=== PATIENT | male | born 1970 | race Caucasian/White ===

== ENCOUNTER 2017-01-30 10:56 | Emergency (ER) | payer SELFPAY ==
[~2017-01-30] VITALS: Ht 180.3 cm; Wt 68.4 kg
[2017-01-30 10:59] VITALS: BP 177/121
[2017-01-30 11:56] LABS: PATH.CAST-FLAG NOT PRESENT; SPERM-FLAG NOT PRESENT; SRC-FLAG NOT PRESENT; XTAL-FLAG NOT PRESENT; YLC-FLAG NOT PRESENT
[2017-01-30] MEDS ORDERED: SODIUM CHLORIDE FLUSH 10ML SYR IVF ONE (12:00)
[2017-01-30 12:24] LABS: ASPARTATE AMINO TRANSFERASE 16 U/L (15-37); BLOOD UREA NITROGEN 14 mg/dL (7-18)
== END 2017-01-30 14:00 | disposition home or self-care (01) ==
LOC: ED 12:12
DX: G89.29 Other chronic pain (principal); R10.84 Generalized abdominal pain; M54.5 Low back pain; I10 Essential (primary) hypertension; F17.200 Nicotine dependence, unspecified, uncomplicated; Z90.49 Acquired absence of other specified parts of digestive tract; Z88.6 Allergy status to analgesic agent
CPT/HCPCS: 36415; 74020; 80053; 81001; 83690; 85025; 85610; 85730; 93005; 99285

== ENCOUNTER 2017-02-05 14:38 | Emergency (ER) | payer OTHER ==
[~2017-02-05] VITALS: Ht 170.2 cm; Wt 75.0 kg
[2017-02-05] MEDS ORDERED: HYDROmorphone 1 MG/ML, 1ML ONE ×2 (14:49→15:37)
[2017-02-05] MEDS ORDERED: ONDANSETRON 2MG/ML, 2ML ONE (14:50)
[2017-02-05] MEDS ORDERED: DIPH,PERTUSS(ACELL),TET VAC/PF 0.5 ML IM-VACC ONE ×2 (14:50→15:00)
[2017-02-05] MEDS ORDERED: DIPHTHERIA-TETANUS ADULT 0.5ML IM-VACC ONE (15:00)
[2017-02-05] MEDS ORDERED: ONDANSETRON 2MG/ML, 2ML IVPush ONE (15:00)
[2017-02-05] MEDS: HYDROmorphone 1 MG/ML, 1ML IVPush PRN ×2 (15:00→15:41)
[2017-02-05] MEDS ORDERED: SODIUM CHLORIDE 0.9% 1,000ML IVBOLUS ONE (15:00)
[2017-02-05] MEDS ORDERED: SODIUM CHLORIDE FLUSH 10ML SYR IVF ONE (15:00)
[2017-02-05 15:26] LABS: ASPARTATE AMINO TRANSFERASE 17 U/L (15-37); BLOOD UREA NITROGEN 14 mg/dL (7-18)
[2017-02-05] MEDS ORDERED: OMNIPAQUE 350 MG/ML, 100ML BOTTLE ONE (15:39)
[2017-02-05] MEDS ORDERED: OXYcodone/APAP 10/325MG TABLET ONE (16:01)
[2017-02-05] MEDS ORDERED: OXYcodone/APAP 10/325MG TABLET PO ONE (16:30)
[2017-02-05] MEDS ORDERED: LIDOCAINE 1%, 20ML ONE (17:19)
[2017-02-05] MEDS ORDERED: BACITRACIN ZINC OINT 500U/GM, 0.9 GM ONE (17:29)
[2017-02-05 19:13] VITALS: BP 132/87
== END 2017-02-05 19:16 | disposition home or self-care (01) ==
LOC: ED 19:00
DX: S01.511A Laceration without foreign body of lip, initial encounter (principal); S00.83XA Contusion of other part of head, initial encounter; S43.101A Unspecified dislocation of right acromioclavicular joint, initial encounter; V19.3XXA Pedal cyclist (driver) (passenger) injured in unspecified nontraffic accident, initial encounter; Y93.I9 Activity, other involving external motion; Y92.89 Other specified places as the place of occurrence of the external cause; Y99.8 Other external cause status
CPT/HCPCS: 12011; 29105; 36415; 70450; 71260; 72125; 73080; 74177; 80053; 80307; 85025; 85610; 96361; 96374; 96375; 96376; 99285; J1170; J2405; J7030; Q9967

== ENCOUNTER 2018-03-21 09:39 | Inpatient (IN) | payer MEDICARE ==
[~2018-03-21] VITALS: Ht 177.8 cm; Wt 72.0 kg
[2018-03-21] MEDS ORDERED: SODIUM CHLORIDE FLUSH 10ML SYR IVF ONE (10:00)
[2018-03-21] MEDS ORDERED: MORPHINE SULFATE 4 MG/ML, 1ML IVPush PRN (10:00)
[2018-03-21] MEDS ORDERED: SODIUM CHLORIDE 0.9% 1,000ML IVBOLUS ONE (10:00)
[2018-03-21] MEDS ORDERED: MORPHINE SULFATE 4 MG/ML, 1ML ONE (10:15)
[2018-03-21] MEDS ORDERED: PLEASE ENTER WEIGHT MC SCH (10:30)
[2018-03-21 10:33] LABS: MEAN CORPUSCULAR HEMOGLOBIN 28.8 pg (27.5-34.5); MEAN CORPUSCULAR HGB CONC 33.2 g/dL (33.2-36.2); MEAN CORPUSCULAR VOLUME 86.5 fL (81-97); MEAN PLATELET VOLUME 7.9 fL (7.4-10.4); PLATELET COUNT 265 x10^3/uL (130-400); RED BLOOD COUNT 5.26 x10^6/uL (4.38-5.82); RED CELL DISTRIBUTION WIDTH 14.4 % (9.4-14.8)
[2018-03-21 10:39] LABS: ALANINE AMINOTRANSFERASE 28 U/L (12-78); ALBUMIN 3.2 g/dL (3.4-5.0); ANION GAP 11 mmol/L (5-15); CALCIUM 8.9 mg/dL (8.5-10.1); CHLORIDE 97 mmol/L (98-107)
[2018-03-21 10:41] LABS: ALKALINE PHOSPHATASE 199 U/L (45-117); BILIRUBIN,TOTAL 0.7 mg/dL (0.2-1.0)
[2018-03-21] MEDS ORDERED: SODIUM CHLORIDE 0.9%, 500ML IVBOLUS ONE (11:00)
[2018-03-21] MEDS ORDERED: CEFTRIAXONE PMX 1GM/50ML 50 ML IV ONE (11:00)
[2018-03-21] MEDS ORDERED: AZITHROMYCIN 500 MG in SODIUM CHLORIDE 0.9% 250 ML IV ONE (11:00)
[2018-03-21] MEDS ORDERED: CEFTRIAXONE PMX 1GM/50ML 50 ML ONE (11:07)
[2018-03-21 11:08] LABS: MD YES
[2018-03-21 11:09] LABS: BAND#(MANUAL) 0.96 x10^3/uL; BANDS%(MANUAL) 5 % (0-7); LYMPH#(MANUAL) 1.54 x10^3/uL (1-3.4); LYMPHS% (MANUAL) 8 % (22-44); MONOS#(MANUAL) 0.96 x10^3/uL (0.3-2.7); MONOS% (MANUAL) 5 % (2-9); SEG#(MANUAL) 15.74 x10^3/uL (1.8-6.8); SEGS% (MANUAL) 82 % (42-75)
[2018-03-21 11:10] LABS: <RBC MORPHOLOGY> NORMAL
[2018-03-21 11:11] LABS: <PLATELET ESTIMATE> ADEQUATE; <PLT MORPHOLOGY> NORMAL PLT MORPH
[2018-03-21] MEDS ORDERED: VANCOMYCIN 1,400 MG in SODIUM CHLORIDE 0.9% 250 ML IV ONE (11:30)
[2018-03-21] MEDS ORDERED: VANCOMYCIN PER PHARMACY MC ONE (11:30)
[2018-03-21] MEDS ORDERED: ONDANSETRON ODT 4 MG PO PRN (12:00)
[2018-03-21] MEDS ORDERED: hydrALAzine 20 MG/ML, 1ML IVPush PRN (12:00)
[2018-03-21] MEDS ORDERED: LABETALOL 5MG/ML, 20ML IVPush PRN (12:00)
[2018-03-21] MEDS ORDERED: ONDANSETRON 2MG/ML, 2ML IVPush PRN (12:00)
[2018-03-21] MEDS ORDERED: CEFTRIAXONE 1,000 MG in SODIUM CHLORIDE 0.9% 50 ML IVPB SCH (13:00)
[2018-03-21 14:00] VITALS: BP 150/99
[2018-03-21 14:42] LABS: MICROSCOPIC INDICATED
[2018-03-21 14:43] LABS: CULTURE INDICATED? YES
[2018-03-21] MEDS ORDERED: ACETAMINOPHEN 325 MG TABLET PO PRN (15:00)
[2018-03-21 15:04] LABS: AMPHETAMINE SCREEN, URINE Positive (Negative); BARBITURATE SCREEN, URINE Negative (Negative); BENZODIAZEPINE SCREEN, URINE Negative (Negative); CANNABINOID SCREEN, URINE Positive (Negative); COCAINE SCREEN, URINE Negative (Negative); METHADONE SCREEN, URINE Negative (Negative); OPIATE SCREEN, URINE Positive (Negative)
[2018-03-21] MEDS: NICOTINE 14MG/24 HR PATCH.TD24 TD SCH (15:04)
[2018-03-21] MEDS: ENOXAPARIN 40 MG/0.4 ML SQ SCH (15:05)
[2018-03-21] MEDS ORDERED: ACETAMINOPHEN 500 MG TABLET ONE (15:09)
[2018-03-21] MEDS ORDERED: ALBUTEROL SULFATE 2.5 MG/3 ML ONE (16:12)
[2018-03-21] MEDS ORDERED: ALBUTEROL SULFATE 2.5 MG/3 ML NPPB PRN (16:30)
[2018-03-21] MEDS: SODIUM CHLORIDE 0.9% 1,000 ML IV SCH (17:07)
[2018-03-21] MEDS: ALBUTEROL SULFATE 2.5 MG/3 ML NPPB SCH (20:00)
[2018-03-21 20:25] VITALS: BP 105/61
[2018-03-21] MEDS ORDERED: ACETAMINOPHEN 500 MG TABLET PO PRN (21:00)
[2018-03-22 02:10] VITALS: BP 103/63
[2018-03-22] MEDS: SODIUM CHLORIDE 0.9% 1,000 ML IV SCH ×3 (03:35→22:38)
[2018-03-22 05:41] LABS: MEAN CORPUSCULAR HEMOGLOBIN 29.5 pg (27.5-34.5); MEAN CORPUSCULAR HGB CONC 33.6 g/dL (33.2-36.2); MEAN CORPUSCULAR VOLUME 87.8 fL (81-97); MEAN PLATELET VOLUME 8.2 fL (7.4-10.4); PLATELET COUNT 240 x10^3/uL (130-400); RED BLOOD COUNT 4.74 x10^6/uL (4.38-5.82); RED CELL DISTRIBUTION WIDTH 14.5 % (9.4-14.8)
[2018-03-22 05:51] LABS: ALBUMIN 2.4 g/dL (3.4-5.0); ANION GAP 9 mmol/L (5-15); CALCIUM 7.9 mg/dL (8.5-10.1); CHLORIDE 104 mmol/L (98-107)
[2018-03-22 06:01] LABS: ALANINE AMINOTRANSFERASE 22 U/L (12-78); ALKALINE PHOSPHATASE 197 U/L (45-117); BILIRUBIN,TOTAL 0.6 mg/dL (0.2-1.0); CHOL/HDL RATIO 2.6; CHOLESTEROL, TOTAL 77 mg/dL (140-239); HDL CHOL % 39 % (26-37); HDL CHOLESTEROL (DIRECT) 30 mg/dL (40-60); LDL CHOLESTEROL,CALCULATED 30 mg/dL (54-169); THYROID STIMULATING HORMONE 0.585 mIU/L (0.358-3.740); TOTAL PROTEIN 6.5 g/dL (6.4-8.2); TRIGLYCERIDES 83 mg/dL (50-200); VLDL CHOLESTEROL 17 mg/dL (0-25)
[2018-03-22 06:55] LABS: MD YES
[2018-03-22 06:57] LABS: BAND#(MANUAL) 0.79 x10^3/uL; BANDS%(MANUAL) 4 % (0-7); LYMPH#(MANUAL) 1.58 x10^3/uL (1-3.4); LYMPHS% (MANUAL) 8 % (22-44); MONOS#(MANUAL) 1.77 x10^3/uL (0.3-2.7); MONOS% (MANUAL) 9 % (2-9); SEG#(MANUAL) 15.56 x10^3/uL (1.8-6.8); SEGS% (MANUAL) 79 % (42-75)
[2018-03-22 06:58] LABS: <PLATELET ESTIMATE> ADEQUATE; <PLT MORPHOLOGY> NORMAL PLT MORPH; <RBC MORPHOLOGY> NORMAL
[2018-03-22 07:03] VITALS: BP 130/92
[2018-03-22] MEDS: ALBUTEROL SULFATE 2.5 MG/3 ML NPPB SCH ×2 (07:35→11:00)
[2018-03-22] MEDS: NEUTRA PHOS K 250 MG TABLET PO SCH ×3 (08:04→22:37)
[2018-03-22] MEDS: SENNA/DOCUSATE TABLET PO SCH ×2 (08:04→08:06)
[2018-03-22] MEDS ORDERED: CEFTRIAXONE 1,000 MG IV SCH (09:00)
[2018-03-22] MEDS: AZITHROMYCIN 500 MG in SODIUM CHLORIDE 0.9% 250 ML IV SCH (12:03)
[2018-03-22] MEDS: ACETAMINOPHEN 500 MG TABLET PO PRN ×2 (12:03→22:37)
[2018-03-22 12:54] VITALS: BP 102/66
[2018-03-22] MEDS: CEFTRIAXONE 1,000 MG in SODIUM CHLORIDE 0.9% 50 ML IVPB SCH (14:17)
[2018-03-22] MEDS: NICOTINE 14MG/24 HR PATCH.TD24 TD SCH (15:30)
[2018-03-22] MEDS: ENOXAPARIN 40 MG/0.4 ML SQ SCH (15:45)
[2018-03-22 19:15] LABS: OCCULT BLOOD NEGATIVE (NEGATIVE)
[2018-03-22 19:23] LABS: CLOSTRIDIUM DIFFICILE ANTIGEN NEGATIVE; CLOSTRIDIUM DIFFICILE TOXIN NEGATIVE (Negative)
[2018-03-22 19:37] VITALS: BP 98/60
[2018-03-23 04:34] VITALS: BP 102/55
[2018-03-23 05:53] LABS: CHLORIDE 109 mmol/L (98-107)
[2018-03-23 05:56] LABS: BASOPHILS # (AUTO) 0.02 x10^3/uL (0-0.1); BASOPHILS % (AUTO) 0 % (0-1); EOSINOPHILS # (AUTO) 0.12 x10^3/uL (0-0.4); EOSINOPHILS % (AUTO) 1 % (1-7); LYMPHOCYTES # (AUTO) 2.04 x10^3/uL (1-3.4); LYMPHOCYTES % (AUTO) 19 % (22-44); MD NO; MEAN CORPUSCULAR HEMOGLOBIN 28.7 pg (27.5-34.5); MEAN CORPUSCULAR HGB CONC 33.2 g/dL (33.2-36.2); MEAN CORPUSCULAR VOLUME 86.6 fL (81-97); MEAN PLATELET VOLUME 7.9 fL (7.4-10.4); MONOCYTES # (AUTO) 1.06 x10^3/uL (0.2-0.8); MONOCYTES % (AUTO) 10 % (2-9); NEUTROPHILS # (AUTO) 7.74 x10^3/uL (1.8-6.8); NEUTROPHILS % (AUTO) 71 % (42-75); PLATELET COUNT 286 x10^3/uL (130-400); RED BLOOD COUNT 4.43 x10^6/uL (4.38-5.82); RED CELL DISTRIBUTION WIDTH 14.7 % (9.4-14.8)
[2018-03-23 06:13] LABS: ALANINE AMINOTRANSFERASE 26 U/L (12-78); ALBUMIN 2.2 g/dL (3.4-5.0); ALKALINE PHOSPHATASE 203 U/L (45-117); ANION GAP 7 mmol/L (5-15); BILIRUBIN,TOTAL 0.2 mg/dL (0.2-1.0); TOTAL PROTEIN 5.9 g/dL (6.4-8.2)
[2018-03-23 07:07] VITALS: BP 123/77
[2018-03-23] MEDS: SODIUM CHLORIDE 0.9% 1,000 ML IV SCH (08:27)
[2018-03-23] MEDS: SENNA/DOCUSATE TABLET PO SCH (08:42)
[2018-03-23] MEDS ORDERED: DEXTROMETHORPHAN 30 MG/5 ML ORAL SOL PO PRN (09:00)
[2018-03-23] MEDS: NEUTRA PHOS K 250 MG TABLET PO SCH ×3 (09:58→22:13)
[2018-03-23 12:14] VITALS: BP 144/90
[2018-03-23] MEDS: AZITHROMYCIN 500 MG in SODIUM CHLORIDE 0.9% 250 ML IV SCH (12:21)
[2018-03-23] MEDS: CEFTRIAXONE 1,000 MG in SODIUM CHLORIDE 0.9% 50 ML IVPB SCH (13:40)
[2018-03-23] MEDS: NICOTINE 14MG/24 HR PATCH.TD24 TD SCH (15:02)
[2018-03-23] MEDS: ENOXAPARIN 40 MG/0.4 ML SQ SCH (15:57)
[2018-03-23] MEDS: GUAIFENESIN 200 MG TABLET PO SCH ×2 (16:00→22:13)
[2018-03-23 20:30] VITALS: BP 145/94
[2018-03-24 02:16] VITALS: BP 142/85
[2018-03-24 05:01] LABS: BASOPHILS # (AUTO) 0.04 x10^3/uL (0-0.1); BASOPHILS % (AUTO) 1 % (0-1); EOSINOPHILS # (AUTO) 0.26 x10^3/uL (0-0.4); EOSINOPHILS % (AUTO) 3 % (1-7); LYMPHOCYTES # (AUTO) 2.26 x10^3/uL (1-3.4); LYMPHOCYTES % (AUTO) 27 % (22-44); MD NO; MEAN CORPUSCULAR HEMOGLOBIN 28.4 pg (27.5-34.5); MEAN CORPUSCULAR HGB CONC 33.1 g/dL (33.2-36.2); MEAN CORPUSCULAR VOLUME 85.8 fL (81-97); MEAN PLATELET VOLUME 7.9 fL (7.4-10.4); MONOCYTES # (AUTO) 0.58 x10^3/uL (0.2-0.8); MONOCYTES % (AUTO) 7 % (2-9); NEUTROPHILS % (AUTO) 63 % (42-75); PLATELET COUNT 337 x10^3/uL (130-400); RED BLOOD COUNT 4.91 x10^6/uL (4.38-5.82); RED CELL DISTRIBUTION WIDTH 14.5 % (9.4-14.8)
[2018-03-24 05:08] LABS: CHLORIDE 104 mmol/L (98-107)
[2018-03-24 05:15] LABS: ALANINE AMINOTRANSFERASE 33 U/L (12-78); ALBUMIN 2.3 g/dL (3.4-5.0); ALKALINE PHOSPHATASE 225 U/L (45-117); ANION GAP 8 mmol/L (5-15); BILIRUBIN,TOTAL 0.2 mg/dL (0.2-1.0); CALCIUM 8.3 mg/dL (8.5-10.1); CREATININE 0.73 mg/dL (0.7-1.3); TOTAL PROTEIN 6.5 g/dL (6.4-8.2)
[2018-03-24] MEDS: GUAIFENESIN 200 MG TABLET PO SCH ×4 (06:26→23:12)
[2018-03-24] MEDS: SODIUM CHLORIDE 0.9% 1,000 ML IV SCH (06:27)
[2018-03-24 07:18] VITALS: BP 131/74
[2018-03-24] MEDS: NEUTRA PHOS K 250 MG TABLET PO SCH ×3 (08:12→23:12)
[2018-03-24] MEDS: SENNA/DOCUSATE TABLET PO SCH (08:13)
[2018-03-24] MEDS: AZITHROMYCIN 500 MG in SODIUM CHLORIDE 0.9% 250 ML IV SCH (11:59)
[2018-03-24 12:46] VITALS: BP 139/93
[2018-03-24] MEDS: NICOTINE 14MG/24 HR PATCH.TD24 TD SCH (14:21)
[2018-03-24] MEDS: CEFTRIAXONE 1,000 MG in SODIUM CHLORIDE 0.9% 50 ML IVPB SCH (14:21)
[2018-03-24] MEDS: ENOXAPARIN 40 MG/0.4 ML SQ SCH (16:11)
[2018-03-24 19:19] VITALS: BP 158/90
[2018-03-25 02:39] VITALS: BP 141/89
[2018-03-25] MEDS: SODIUM CHLORIDE 0.9% 1,000 ML IV SCH ×2 (03:00→19:54)
[2018-03-25 04:48] LABS: BASOPHILS # (AUTO) 0.12 x10^3/uL (0-0.1); BASOPHILS % (AUTO) 2 % (0-1); EOSINOPHILS # (AUTO) 0.22 x10^3/uL (0-0.4); EOSINOPHILS % (AUTO) 3 % (1-7); LYMPHOCYTES # (AUTO) 2.03 x10^3/uL (1-3.4); LYMPHOCYTES % (AUTO) 28 % (22-44); MD NO; MEAN CORPUSCULAR HEMOGLOBIN 29.1 pg (27.5-34.5); MEAN CORPUSCULAR HGB CONC 33.7 g/dL (33.2-36.2); MEAN CORPUSCULAR VOLUME 86.5 fL (81-97); MEAN PLATELET VOLUME 7.6 fL (7.4-10.4); MONOCYTES # (AUTO) 0.42 x10^3/uL (0.2-0.8); MONOCYTES % (AUTO) 6 % (2-9); NEUTROPHILS # (AUTO) 4.49 x10^3/uL (1.8-6.8); NEUTROPHILS % (AUTO) 62 % (42-75); PLATELET COUNT 389 x10^3/uL (130-400); RED BLOOD COUNT 4.96 x10^6/uL (4.38-5.82); RED CELL DISTRIBUTION WIDTH 14.7 % (9.4-14.8)
[2018-03-25 05:01] LABS: ALANINE AMINOTRANSFERASE 79 U/L (12-78); ALBUMIN 2.5 g/dL (3.4-5.0); ANION GAP 8 mmol/L (5-15); CALCIUM 8.5 mg/dL (8.5-10.1); CHLORIDE 105 mmol/L (98-107)
[2018-03-25 05:04] LABS: ALKALINE PHOSPHATASE 226 U/L (45-117); BILIRUBIN,TOTAL 0.7 mg/dL (0.2-1.0); CREATININE 0.66 mg/dL (0.7-1.3); TOTAL PROTEIN 7.1 g/dL (6.4-8.2)
[2018-03-25] MEDS: GUAIFENESIN 200 MG TABLET PO SCH ×4 (06:28→19:54)
[2018-03-25 07:34] VITALS: BP 144/72
[2018-03-25 08:23] LABS: INTERNATIONAL NORMALIZED RATIO 1.16 (0.93-1.1)
[2018-03-25] MEDS: SENNA/DOCUSATE TABLET PO SCH (09:00)
[2018-03-25] MEDS: NEUTRA PHOS K 250 MG TABLET PO SCH ×3 (09:14→19:54)
[2018-03-25] MEDS: AZITHROMYCIN 500 MG in SODIUM CHLORIDE 0.9% 250 ML IV SCH (12:37)
[2018-03-25 13:46] VITALS: BP 123/69
[2018-03-25] MEDS: CEFTRIAXONE 1,000 MG in SODIUM CHLORIDE 0.9% 50 ML IVPB SCH (14:37)
[2018-03-25] MEDS ORDERED: MOVIPREP POWDER 1 PREP KIT PO ONE (15:00)
[2018-03-25] MEDS: NICOTINE 14MG/24 HR PATCH.TD24 TD SCH (15:30)
[2018-03-25] MEDS: ACETAMINOPHEN 500 MG TABLET PO PRN (17:22)
[2018-03-25 17:41] LABS: BASOPHILS # (AUTO) 0.05 x10^3/uL (0-0.1); BASOPHILS % (AUTO) 1 % (0-1); EOSINOPHILS # (AUTO) 0.26 x10^3/uL (0-0.4); EOSINOPHILS % (AUTO) 4 % (1-7); LYMPHOCYTES % (AUTO) 35 % (22-44); MD NO; MEAN CORPUSCULAR HEMOGLOBIN 29.3 pg (27.5-34.5); MEAN CORPUSCULAR HGB CONC 33.6 g/dL (33.2-36.2); MEAN CORPUSCULAR VOLUME 87.2 fL (81-97); MEAN PLATELET VOLUME 7.8 fL (7.4-10.4); MONOCYTES # (AUTO) 0.45 x10^3/uL (0.2-0.8); MONOCYTES % (AUTO) 7 % (2-9); NEUTROPHILS % (AUTO) 53 % (42-75); PLATELET COUNT 393 x10^3/uL (130-400); RED BLOOD COUNT 4.68 x10^6/uL (4.38-5.82); RED CELL DISTRIBUTION WIDTH 14.7 % (9.4-14.8)
[2018-03-25 19:51] VITALS: BP 151/89
[2018-03-26 01:38] VITALS: BP 131/87
[2018-03-26 04:35] LABS: BASOPHILS # (AUTO) 0.07 x10^3/uL (0-0.1); BASOPHILS % (AUTO) 1 % (0-1); EOSINOPHILS # (AUTO) 0.14 x10^3/uL (0-0.4); EOSINOPHILS % (AUTO) 2 % (1-7); LYMPHOCYTES # (AUTO) 2.28 x10^3/uL (1-3.4); LYMPHOCYTES % (AUTO) 33 % (22-44); MD NO; MEAN CORPUSCULAR HEMOGLOBIN 29.2 pg (27.5-34.5); MEAN CORPUSCULAR HGB CONC 33.1 g/dL (33.2-36.2); MEAN CORPUSCULAR VOLUME 88.2 fL (81-97); MEAN PLATELET VOLUME 7.8 fL (7.4-10.4); MONOCYTES # (AUTO) 0.45 x10^3/uL (0.2-0.8); MONOCYTES % (AUTO) 6 % (2-9); NEUTROPHILS # (AUTO) 4.06 x10^3/uL (1.8-6.8); NEUTROPHILS % (AUTO) 58 % (42-75); PLATELET COUNT 441 x10^3/uL (130-400); RED BLOOD COUNT 4.85 x10^6/uL (4.38-5.82); RED CELL DISTRIBUTION WIDTH 14.3 % (9.4-14.8)
[2018-03-26 04:46] LABS: ALANINE AMINOTRANSFERASE 95 U/L (12-78); ALBUMIN 2.7 g/dL (3.4-5.0); ANION GAP 9 mmol/L (5-15); CALCIUM 8.2 mg/dL (8.5-10.1); CHLORIDE 108 mmol/L (98-107); CREATININE 0.67 mg/dL (0.7-1.3)
[2018-03-26 04:48] LABS: ALKALINE PHOSPHATASE 213 U/L (45-117); BILIRUBIN,TOTAL 0.4 mg/dL (0.2-1.0); TOTAL PROTEIN 7.2 g/dL (6.4-8.2)
[2018-03-26] MEDS: GUAIFENESIN 200 MG TABLET PO SCH ×3 (05:34→16:29)
[2018-03-26 06:49] VITALS: BP 127/69
[2018-03-26] MEDS ORDERED: DOXYCYCLINE 100MG TABLET PO SCH (09:00)
[2018-03-26] MEDS ORDERED: AMOXICILLIN/CLAV 875-125MG TABLET PO SCH (09:00)
[2018-03-26] MEDS: SENNA/DOCUSATE TABLET PO SCH (09:00)
[2018-03-26] MEDS ORDERED: PROPOFOL 10 MG/ML, 20ML ONE (09:02)
[2018-03-26] MEDS ORDERED: hydrALAzine 20 MG/ML, 1ML ONE (09:58)
[2018-03-26] MEDS ORDERED: PROMETHAZINE 25 MG/ML, 1ML IV PRN (10:00)
[2018-03-26] MEDS ORDERED: ONDANSETRON ODT 8 MG PO PRN (10:00)
[2018-03-26] MEDS ORDERED: ACETAMINOPHEN 325 MG TABLET PO PRN (10:00)
[2018-03-26] MEDS ORDERED: ONDANSETRON 2MG/ML, 2ML IV PRN (10:00)
[2018-03-26] MEDS ORDERED: OXYcodone 5 MG/5 ML ORAL.SOL UDC PO PRN (10:00)
[2018-03-26] MEDS ORDERED: DIPHENHYDRAMINE 50 MG CAPSULE PO PRN (11:30)
[2018-03-26 12:07] VITALS: BP 122/62
[2018-03-26] MEDS: NICOTINE 14MG/24 HR PATCH.TD24 TD SCH (15:30)
[2018-03-26] MEDS ORDERED: AMOX1TAB12 PO (15:31)
[2018-03-26] MEDS ORDERED: HYDR25SU3 PR (15:31)
[2018-03-26] MEDS ORDERED: GUAI200T3 PO (15:31)
[2018-03-26] MEDS ORDERED: DOXY100T PO (15:31)
[2018-03-26] MEDS ORDERED: NICO-486 TD (15:31)
[2018-03-26] MEDS ORDERED: PSYL3.4P8 PO (15:36)
[2018-03-26] MEDS: SODIUM CHLORIDE 0.9% 1,000 ML IV SCH (16:00)
[2018-03-26] MEDS ORDERED: PSYLLIUM PACKET PO SCH ×2 (16:00)
[2018-03-26 17:23] VITALS: BP 139/92
[2018-03-26] MEDS ORDERED: HYDROCORTISONE 25 MG SUPP PR SCH (21:00)
== END 2018-03-26 18:00 | disposition home or self-care (01) | DRG 871 ==
LOC: ED 10:40 → EDIP 11:08 → 4NOR 12:48
PROVIDERS: ADMIT Hospitalist; ATTEND Hospitalist
PROC: 0DJD8ZZ Inspection of Lower Intestinal Tract, Via Natural or Artificial Opening Endoscopic (ICD-10-PCS; principal; 2018-03-21)
DX: A41.9 Sepsis, unspecified organism (principal); J18.9 Pneumonia, unspecified organism; K85.90 Acute pancreatitis without necrosis or infection, unspecified; E44.1 Mild protein-calorie malnutrition; E87.1 Hypo-osmolality and hyponatremia; R74.0 Nonspecific elevation of levels of transaminase and lactic acid dehydrogenase [LDH]; E87.6 Hypokalemia; E83.39 Other disorders of phosphorus metabolism; F17.210 Nicotine dependence, cigarettes, uncomplicated; F12.90 Cannabis use, unspecified, uncomplicated; I10 Essential (primary) hypertension; F41.9 Anxiety disorder, unspecified; F31.9 Bipolar disorder, unspecified; Y90.9 Presence of alcohol in blood, level not specified; F10.21 Alcohol dependence, in remission; F40.10 Social phobia, unspecified; N50.89 Other specified disorders of the male genital organs; K64.2 Third degree hemorrhoids; Z88.6 Allergy status to analgesic agent; Z68.22 Body mass index [BMI] 22.0-22.9, adult; Z90.49 Acquired absence of other specified parts of digestive tract; Z83.3 Family history of diabetes mellitus; Z82.5 Family history of asthma and other chronic lower respiratory diseases
CPT/HCPCS: 36415; 71045; 74176; 76700; 76870; 80053; 80061; 80307; 81001; 82272; 83605; 83690; 83735; 84100; 84443; 85025; 85610; 85730; 86780; 87040; 87086; 87324; 87491; 87591; 87806; 93005; 94640; 96374; 96375; 99285; G0378; J0456; J0696; J1650; J2704; J3370; J7613; G0475; J0360; J7030; J7040; J7050

== ENCOUNTER → 2020-12-08 | Outpatient (CLI) | payer MEDICARE ==
[~2020-12-08] MED LIST: AMOX1TAB12 PO; BP MED; CIPR500T4 PO; DOXY100T PO; FLOMAX; GUAI200T37 PO; HYDR25SU3 PR; HYDR453. TP; LACT1CAP35 PO; NICO-486 TD; NICO-587 TD; POLY17PO5 PO; PSYL3.4P8 PO; TAMS-11 PO
== END | disposition home or self-care (01) ==
LOC: RAD 15:35
PROVIDERS: ATTEND Orthopaedic Surgery Foot and Ankle Surgery
DX: M79.662 Pain in left lower leg (principal)

== ENCOUNTER 2021-01-08 23:31 | Emergency (ER) | payer MEDICARE ==
[~2021-01-08] VITALS: Ht 180.3 cm; Wt 84.0 kg
--- NOTE | 2021-01-08 23:47 | NUR ---
PT BIB AMBULANCE BECAUSE OF DISPLACED JONES CATHETER. PT STATES HE HAS HAD A JONES IN PLACE FOR 4 MONTHS BECAUSE OF PROSTATITIS. PT ABLE TO VOID UPON ARRIVAL TO [facility] ED. UA COLLECTED AND WALKED TO LAB. PT ATTACHED TO VS MONITORS. VSS AT THIS TIME. PT EDUCATED ON ER PROCESS AND VERBALIZES UNDERSTANDING. PT HAS CALL LIGHT WITHIN REACH. AWAITING ERP AND ORDERS AT THIS TIME.
[2021-01-09] MEDS ORDERED: LIDOCAINE 2%,20 ML JEL.PF.APP MM ONE ×2 (00:05)
--- NOTE | 2021-01-09 00:06 | NUR ---
PT IN RESTROOM AT THIS TIME.
[2021-01-09 00:16] LABS: MICROSCOPIC INDICATED
[2021-01-09] MEDS ORDERED: CEFDINIR 300 MG CAPSULE PO ONE (01:00)
--- NOTE | 2021-01-09 01:24 | NUR ---
REPORT OF PT TO KOSTAS LESTER. ALL QUESTIONS ANSWERED.
--- NOTE | 2021-01-09 01:41 | NUR ---
First contact with pt, pt c/o intermittent cp lasting few minutes. EKG done, to dr rolon. Pt to f/u with his urologist and pcp, returnt to ER if sx worsen or concerns. Pt refused leg bag says just desiree a taxi voucher.
[2021-01-09 01:42] VITALS: BP 135/74
== END 2021-01-09 01:47 ==
LOC: ED 01-09 00:45
DX: N40.1 Benign prostatic hyperplasia with lower urinary tract symptoms (principal); R33.8 Other retention of urine; N30.01 Acute cystitis with hematuria; R94.31 Abnormal electrocardiogram [ECG] [EKG]; I10 Essential (primary) hypertension; F17.200 Nicotine dependence, unspecified, uncomplicated
CPT/HCPCS: 51702; 81001; 87077; 87086; 87186; 93005; 99284

== ENCOUNTER 2021-01-29 01:10 | Emergency (ER) | payer MEDICARE ==
[~2021-01-29] VITALS: Ht 170.2 cm; Wt 81.8 kg
--- NOTE | 2021-01-29 01:22 | NUR ---
Pt arrived with concerns of disconnected hernandez bag. Hernandez bag is leaking at tubing connection, pt has had hernandez bag "for four months but was supposed to come out in two weeks". Cloudy yellow urine in hernandez bag. Pt reports completion of bactrium this week for known UTI. VSS, WCTM
--- NOTE | 2021-01-29 01:28 | NUR ---
Bladder scan preformed, 422ml
--- NOTE | 2021-01-29 01:36 | NUR ---
Han cath removed, pt tolerated well. Urinal at bedside for pt use. WCTM
--- NOTE | 2021-01-29 02:40 | NUR ---
pt unable to urinate on own, scant amount of bloody urine in bedside urinal, provider notified
[2021-01-29 03:46] LABS: MICROSCOPIC INDICATED
[2021-01-29 04:16] VITALS: BP 134/82
--- NOTE | 2021-01-29 04:38 | NUR ---
Patient given discharge instructions and they have confirmed that they understand the instructions and cath care. Patient ambulatory with steady gait to dc. Taxi Voucher provided and pickle cutter arranged
== END 2021-01-29 04:41 | disposition home or self-care (01) ==
LOC: ED 04:19
DX: N40.1 Benign prostatic hyperplasia with lower urinary tract symptoms (principal); R33.8 Other retention of urine; T83.031A Leakage of indwelling urethral catheter, initial encounter; I10 Essential (primary) hypertension
CPT/HCPCS: 51702; 81001; 87086; 99284

== ENCOUNTER → 2021-02-07 | Outpatient (CLI) | payer MEDICARE ==
[~2021-02-07] MED LIST changes: +OMNIPAQUE 350 MG/ML, 100ML BOTTLE ONE
== END | disposition home or self-care (01) ==
LOC: CFH 09:14
PROVIDERS: ATTEND Orthopaedic Surgery Foot and Ankle Surgery
DX: M85.872 Other specified disorders of bone density and structure, left ankle and foot (principal); M84.475A Pathological fracture, left foot, initial encounter for fracture; M21.962 Unspecified acquired deformity of left lower leg
CPT/HCPCS: 73701; 82565; Q9967

== ENCOUNTER 2021-02-24 21:17 | Emergency (ER) | payer MEDICARE ==
[~2021-02-24] VITALS: Ht 172.7 cm; Wt 96.0 kg
[~2021-02-24 21:17] MED LIST changes: -OMNIPAQUE 350 MG/ML, 100ML BOTTLE ONE
--- NOTE | 2021-02-24 21:53 | NUR ---
blader scan [id number]
--- NOTE | 2021-02-24 22:07 | NUR ---
hernandez placed, pt aware of ed care plan. ua sent. report given to Gilberto KENYON
[2021-02-24 22:15] LABS: BASOPHILS % (AUTO) 0 % (0-1); EOSINOPHILS % (AUTO) 6 % (1-7); LYMPHOCYTES % (AUTO) 36 % (22-44); MEAN CORPUSCULAR HEMOGLOBIN 28.5 pg (27.5-34.5); MEAN CORPUSCULAR HGB CONC 33.2 g/dL (33.2-36.2); MEAN PLATELET VOLUME 7.9 fL (7.4-10.4); MONOCYTES % (AUTO) 9 % (2-9); NEUTROPHILS % (AUTO) 49 % (42-75); PLATELET COUNT 235 x10^3/uL (130-400); RED BLOOD COUNT 4.67 x10^6/uL (4.38-5.82); RED CELL DISTRIBUTION WIDTH 14.9 % (9.4-14.8)
[2021-02-24 22:20] LABS: MICROSCOPIC AUTO
[2021-02-24 22:25] LABS: ALBUMIN 3.2 g/dL (3.4-5.0); ANION GAP 6 mmol/L (5-15); CALCIUM 8.7 mg/dL (8.5-10.1); CHLORIDE 105 mmol/L (98-107); CREATININE 1.19 mg/dL (0.7-1.3)
[2021-02-24 22:53] VITALS: BP 132/75
[2021-02-24] MEDS ORDERED: CEFTRIAXONE 1,000 MG in DEXTROSE 5% 50 ML IVPB ONE (23:30)
== END 2021-02-25 00:18 | disposition home or self-care (01) ==
LOC: ED 23:59
DX: N40.1 Benign prostatic hyperplasia with lower urinary tract symptoms (principal); R33.8 Other retention of urine; N30.01 Acute cystitis with hematuria; F17.210 Nicotine dependence, cigarettes, uncomplicated; I10 Essential (primary) hypertension
CPT/HCPCS: 36415; 51702; 80048; 81001; 82040; 85025; 87077; 87086; 87186; 87491; 87591; 96365; 99284; 99406; J0696

== ENCOUNTER 2021-03-25 16:40 | Emergency (ER) | payer MEDICARE ==
[~2021-03-25] VITALS: Ht 170.2 cm; Wt 79.7 kg
[2021-03-25 17:41] LABS: ALANINE AMINOTRANSFERASE 36 U/L (12-78); ALBUMIN 3.3 g/dL (3.4-5.0); ANION GAP 5 mmol/L (5-15); CALCIUM 8.4 mg/dL (8.5-10.1); CHLORIDE 102 mmol/L (98-107); CREATININE 0.91 mg/dL (0.7-1.3)
[2021-03-25 17:43] LABS: ALKALINE PHOSPHATASE 122 U/L (45-117); BASOPHILS % (AUTO) 0 % (0-1); BILIRUBIN,TOTAL 0.3 mg/dL (0.2-1.0); EOSINOPHILS % (AUTO) 1 % (1-7); LYMPHOCYTES % (AUTO) 10 % (22-44); MEAN CORPUSCULAR HEMOGLOBIN 28.8 pg (27.5-34.5); MEAN CORPUSCULAR HGB CONC 33.5 g/dL (33.2-36.2); MEAN PLATELET VOLUME 7.8 fL (7.4-10.4); MONOCYTES % (AUTO) 13 % (2-9); NEUTROPHILS % (AUTO) 75 % (42-75); PLATELET COUNT 270 x10^3/uL (130-400); RED BLOOD COUNT 5.35 x10^6/uL (4.38-5.82); RED CELL DISTRIBUTION WIDTH 15.6 % (9.4-14.8); TOTAL PROTEIN 7.9 g/dL (6.4-8.2)
--- NOTE | 2021-03-25 20:05 | NUR ---
TASK RN: VS UPDATED.
--- NOTE | 2021-03-25 22:49 | NUR ---
FIRST CONTACT: PATIENT REPORTS CHILLS, FEVER, FOUL SMELLING URINE FROM CATHETER. PATIENT STATES HE HAS MISSED UROLOGY APPOINTMENTS TO FOLLOW UP ON REMOVING THE CATHETER. CATETER CLAMPED TO COLLECT URINE.
--- NOTE | 2021-03-25 22:50 | NUR ---
pt c/o of fever, headache, bodyaches, and kidneys hurt. pt attached to monitors. nadn at moment. bed in low, rails negaged, call light karina lap. pt vcathter appears old and dirty. urine appears yellow and cloudy.
--- NOTE | 2021-03-25 22:58 | NUR ---
ua sample obtained. very little amount. on counter for ermd to examine then sending it to lab
--- NOTE | 2021-03-25 22:59 | NUR ---
pt given heated blankets.
[2021-03-25 23:16] LABS: MICROSCOPIC INDICATED
[2021-03-25] MEDS ORDERED: SODIUM CHLORIDE 0.9% 1,000ML IVBOLUS ONE (23:30)
[2021-03-25] MEDS ORDERED: SODIUM CHLORIDE FLUSH 10ML SYR IVF ONE (23:30)
[2021-03-25] MEDS ORDERED: ACETAMINOPHEN 500 MG TABLET PO ONE (23:30)
[2021-03-25] MEDS ORDERED: ACETAMINOPHEN 500 MG TABLET ONE (23:56)
[2021-03-26 00:28] VITALS: BP 177/77
--- NOTE | 2021-03-26 00:32 | NUR ---
Patient/Caregiver given discharge instructions and they have confirmed that they understand the instructions. Patient ambulatory with steady gait. NAD, all questions answered appropriately, denies additional needs at this time. No personal belongings left in room after discharge. PT GIVEN TAXI VOUVHER FOR SAFE DC. PT CATHETER BAG REPLACED. JENIFFER DID NOT WRITE THIS
== END 2021-03-26 00:34 | disposition home or self-care (01) ==
LOC: ED 23:30
DX: U07.1 COVID-19 (principal); N30.00 Acute cystitis without hematuria
CPT/HCPCS: 36415; 71045; 80053; 81001; 85025; 87086; 99285; U0003; U0005

== ENCOUNTER 2021-03-28 01:37 | Emergency (ER) | payer MEDICARE ==
[~2021-03-28] VITALS: Ht 177.8 cm; Wt 77.4 kg
[2021-03-28 01:48] VITALS: BP 161/109
[2021-03-28] MEDS ORDERED: LIDOCAINE 2%,20 ML JEL.PF.APP MM ONE (02:30)
--- NOTE | 2021-03-28 03:58 | NUR ---
Bladder drained, pt tolerated well, leg bag applied for home use and cath care education given
== END 2021-03-28 04:05 | disposition home or self-care (01) ==
LOC: ED 02:00
DX: U07.1 COVID-19 (principal); N40.1 Benign prostatic hyperplasia with lower urinary tract symptoms; R33.8 Other retention of urine; J06.9 Acute upper respiratory infection, unspecified; I10 Essential (primary) hypertension; F17.200 Nicotine dependence, unspecified, uncomplicated
CPT/HCPCS: 99283